=== PATIENT | male | born 1985 | race Caucasian/White ===

== ENCOUNTER 2016-04-28 23:44 | Emergency (ER) | payer BC, OTHER ==
[~2016-04-28] VITALS: Ht 167.6 cm; Wt 108.5 kg
[2016-04-29] MEDS ORDERED: ONDANSETRON 2MG/ML, 2ML ONE (00:15)
[2016-04-29] MEDS ORDERED: MORPHINE SULFATE 4 MG/ML, 1ML ONE ×2 (00:15→01:16)
[2016-04-29] MEDS: MORPHINE SULFATE 4 MG/ML, 1ML IVPush PRN ×2 (00:24→01:23)
[2016-04-29] MEDS ORDERED: ONDANSETRON 2MG/ML, 2ML IVPush ONE (00:30)
[2016-04-29] MEDS ORDERED: SODIUM CHLORIDE FLUSH 10ML SYR IVF ONE (00:30)
[2016-04-29] MEDS ORDERED: FAMOTIDINE 20 MG/2 ML IVP ONE (00:30)
[2016-04-29] MEDS ORDERED: SODIUM CHLORIDE 0.9% 1,000ML IVBOLUS ONE (00:30)
[2016-04-29 01:04] LABS: HEMOGLOBIN 15.9 g/dL (13.7-18.0)
[2016-04-29 01:15] LABS: ASPARTATE AMINO TRANSFERASE 29 U/L (15-37); BLOOD UREA NITROGEN 14 mg/dL (7-18)
[2016-04-29 02:06] VITALS: BP 130/77
== END 2016-04-29 02:36 | disposition home or self-care (01) ==
LOC: ED 23:59
DX: K80.20 Calculus of gallbladder without cholecystitis without obstruction (principal)
CPT/HCPCS: 36415; 76700; 80053; 83690; 85025; 85610; 85730; 96361; 96374; 96375; 96376; 99285; J2405; J7030